=== PATIENT | female | born 1945 | race Caucasian/White ===

== ENCOUNTER 2017-04-27 17:57 | Emergency (ER) | payer SELFPAY ==
[2017-04-27 18:11] VITALS: PULSE 94; TEMP 98.3; BMI 32.1
--- NOTE | 2017-04-27 19:49 | PDOC ---
History of Present Illness - General History Source: Patient Exam Limitations: No Limitations - History of Present Illness Initial Comments: 04/27/17 20:38 The patient is a 71 year old female presenting with her grandson and son, with a significant past medical history of HTN, who presents to the emergency department with abdominal pain, nausea, vomit and diarrhea since yesterday. She describes her pain as ranging from mild to moderate, without radiation or modifying factors. She notes that her pain is intermittently in nature. She states that her abdomen feels hard and bloated. She reports that she has had a total of 1 vomiting and 3 diarrhea episodes that were both non bloody in nature. She states that she took 4 probiotic medications today with little to no relief of her symptoms. The patient denies chest pain, shortness of breath, headache and dizziness. Denies fever, chills and constipation. Denies dysuria, frequency, urgency and hematuria. Allergies: None Past surgical history: None reported Social history: No alcohol, tobacco or drug use reported <Juarez Huff - Last Filed: 04/27/17 20:38> <Zheng Obrien - Last Filed: 05/01/17 07:16> - General Chief Complaint: Pain, Acute Stated Complaint: STOMACH PAIN Time Seen by Provider: 04/27/17 19:48 Past History <Juarez Huff - Last Filed: 04/27/17 20:38> - Suicide/Smoking/Psychosocial Hx Smoking History: Former smoker Have you smoked in the past 12 months: No Information on smoking cessation initiated: No <Zheng Obrien - Last Filed: 05/01/17 07:16> - Past Medical History Allergies/Adverse Reactions: Allergies Allergy/AdvReac Type Severity Reaction Status Date / Time No Known Allergies Allergy Verified 04/27/17 18:08 Home Medications: Ambulatory Orders Enalapril Maleate [Vasotec] 20 mg PO BID 04/27/17 Levofloxacin [Levaquin -] 500 mg PO DAILY #7 tablet 04/28/17 Metronidazole [Flagyl -] 500 mg PO BID #14 tablet 04/28/17 Review of Systems - Review of Systems Able to Perform ROS?: Yes Comments:: 04/27/17 20:39 GENERAL/CONSTITUTIONAL: No fever or chills. No weakness. HEAD, EYES, EARS, NOSE AND THROAT: No change in vision. No ear pain or discharge. No sore throat.- CARDIOVASCULAR: No chest pain or shortness of breath RESPIRATORY: No cough, wheezing, or hemoptysis. GASTROINTESTINAL: (+) Abdominal pain, nausea, vomiting, diarrhea. No constipation. GENITOURINARY: No dysuria, frequency, or change in urination. MUSCULOSKELETAL: No joint or muscle swelling or pain. No neck or back pain. SKIN: No rash NEUROLOGIC: No headache, vertigo, loss of consciousness, or change in strength/ sensation. ENDOCRINE: No increased thirst. No abnormal weight change HEMATOLOGIC/LYMPHATIC: No anemia, easy bleeding, or history of blood clots. ALLERGIC/IMMUNOLOGIC: No hives or skin allergy. <Juarez Huff - Last Filed: 04/27/17 20:38> *Physical Exam - Vital Signs Last Vital Signs Temp Pulse Resp BP Pulse Ox 98.3 F 94 H 19 160/100 97 04/27/17 18:08 04/27/17 18:08 04/27/17 18:08 04/27/17 18:08 04/27/17 18:08 - Physical Exam Comments: 04/27/17 20:39 GENERAL: Awake, alert, and fully oriented, in no acute distress HEAD: No signs of trauma, normocephalic, atraumatic EYES: PERRLA, EOMI, sclera anicteric, conjunctiva clear ENT: Auricles normal inspection, hearing grossly normal, nares patent, oropharynx clear without exudates. Moist mucosa NECK: Normal ROM, supple, no lymphadenopathy, JVD, or masses LUNGS: No distress, speaks full sentences, clear to auscultation bilaterally HEART: Regular rate and rhythm, normal S1 and S2, no murmurs, rubs or gallops, peripheral pulses normal and equal bilaterally. ABDOMEN: Soft, nontender, normoactive bowel sounds. No guarding, no rebound. No masses EXTREMITIES : Normal inspection, Normal range of motion, no edema. No clubbing or cyanosis. NEUROLOGICAL: Cranial nerves II through XII grossly intact. Normal speech, normal gait, no focal sensorimotor deficits SKIN: Warm, Dry, normal turgor, no rashes or lesions noted. <Juarez Huff - Last Filed: 04/27/17 20:38> - Vital Signs Last Vital Signs Temp Pulse Resp BP Pulse Ox 98.3 F 94 H 19 160/100 97 04/27/17 18:08 04/27/17 18:08 04/27/17 18:08 04/27/17 18:08 04/27/17 18:08 <Zheng Obrien - Last Filed: 05/01/17 07:16> ED Treatment Course - Medications Given in the ED: ED Medications Discontinued Medications Generic Name Dose Route Start Last Admin Trade Name John PRN Reason Stop Dose Admin Sodium Chloride 1,000 mls @ 1,000 mls/hr 04/27/17 20:09 04/27/17 20:25 Normal Saline - IV 04/27/17 21:08 Not Given ASDIR STA Morphine Sulfate 4 mg 04/27/17 20:05 04/27/17 20:25 Morphine Injection - IVPUSH 04/27/17 20:06 Not Given ONCE ONE Ondansetron HCl 4 mg 04/27/17 20:05 04/27/17 20:25 Zofran Injection IVPUSH 04/27/17 20:06 Not Given ONCE ONE <Juarez Huff - Last Filed: 04/27/17 20:38> - LABORATORY CBC & Chemistry Diagram: 04/27/17 21:33 04/27/17 21:33 <Zheng Obrien - Last Filed: 05/01/17 07:16> *DC/Admit/Observation/Transfer - Attestations Scribe Attestion: 04/27/17 20:39 Documentation prepared by Juarez Huff, acting as medical device assembler for Zheng Obrien MD <Juarez Huff - Last Filed: 04/27/17 20:38> - Attestations Physician Attestion: 04/27/17 19:48 I, Dr. Zheng Obrien, attest that this document has been prepared under my direction and personally reviewed by me in its entirety. I further attest, that it accurately reflects all work, treatment, procedures and medical decision -making performed by me. <Zheng Obrien - Last Filed: 05/01/17 07:16> Diagnosis at time of Disposition: Enteritis - Discharge Dispostion Disposition: HOME - Prescriptions Prescriptions: Metronidazole [Flagyl -] 500 mg PO BID #14 tablet Levofloxacin [Levaquin -] 500 mg PO DAILY #7 tablet - Referrals Referrals: Bryant Butt MD [Staff Physician] - - Patient Instructions Printed Discharge Instructions: DI for Colitis Additional Instructions: TAke medication as directed. Follow up with your doctor or the doctor referred to you. Return if any problems Print Language: SERBIAN
[2017-04-27] MEDS ORDERED: ONDANSETRON 4 MG/2 ML VIAL IVPUSH ONE ×2 (20:05→20:54)
[2017-04-27] MEDS ORDERED: morphine CARPU-JECT 4 MG/1 ML DISP.SYRIN IVPUSH ONE ×2 (20:05→20:54)
[2017-04-27] MEDS ORDERED: SODIUM CHLORIDE 1,000 ML IV STA ×2 (20:09→20:54)
[2017-04-27] MEDS ORDERED: morphine CARPU-JECT 10 MG/1 ML DISP.SYRIN ONE (21:49)
[2017-04-27] MEDS ORDERED: ONDANSETRON 4 MG/2 ML VIAL ONE (21:50)
[2017-04-27 22:03] LABS: BASOPHIL 0.5 % (0-2.0); EOSINOPHIL 0.6 % (0-4.5); MCH 29.7 pg (25.7-33.7); MCHC 34.1 g/dl (32.0-36.0); MEAN CELL VOLUME 87.2 fl (80-96); MEAN PLT VOLUME 7.3 fl (7.5-11.1); NEUTROPHILS 78.3 % (42.8-82.8); PLATELET COUNT 280 K/MM3 (134-434); RDW 13.6 % (11.6-15.6); WHITE BLOOD COUNT 11.4 K/mm3 (4.0-10.0)
[2017-04-27 22:15] LABS: URINE APPEARANCE SLCLOUDY; URINE BILIRUBIN NEGATIVE (NEGATIVE); URINE BLOOD NEGATIVE (NEGATIVE); URINE COLOR YELLOW; URINE GLUCOSE (UA) NEGATIVE (NEGATIVE); URINE KETONE NEGATIVE (NEGATIVE); URINE NITRITE NEGATIVE (NEGATIVE); URINE PROTEIN NEGATIVE (NEGATIVE); URINE UROBILINOGEN NEGATIVE mg/dL (0.2-1.0)
[2017-04-27 22:19] LABS: INR 0.97 (0.82-1.09)
[2017-04-27 22:30] LABS: ALBUMIN 3.8 g/dl (3.4-5.0); ALK PHOS 101 U/L (45-117); ANION GAP 11 (8-16); BILIRUBIN,TOTAL 0.6 mg/dL (0.2-1.0); CALCIUM 9.1 mg/dL (8.5-10.1); CO2 30 mmol/L (21-32); CREATININE 1.2 mg/dL (0.55-1.02); GLUCOSE,RANDOM 132 mg/dL (74-106); SGOT/AST 14 U/L (15-37); SGPT/ALT 17 U/L (12-78); TOT PROT 7.2 g/dl (6.4-8.2)
[2017-04-28] MEDS ORDERED: METRONIDAZOLE 500 MG PREMIXED 100 ML IVPB ONE ×2 (00:05→00:22)
[2017-04-28] MEDS ORDERED: LEVOFLOXACIN 750 MG IVPB 150 ML IVPB ONE ×2 (00:05→00:22)
--- NOTE | 2017-04-28 02:33 | PDOC ---
*Physical Exam - Vital Signs Last Vital Signs Temp Pulse Resp BP Pulse Ox 98.3 F 94 H 19 160/100 97 04/27/17 18:08 04/27/17 18:08 04/27/17 18:08 04/27/17 18:08 04/27/17 18:08 ED Treatment Course - LABORATORY CBC & Chemistry Diagram: 04/27/17 21:33 04/27/17 21:33 - ADDITIONAL ORDERS Additional order review: Laboratory Results 04/27/17 04/27/17 04/27/17 21:33 21:33 21:33 PT with INR 11.00 INR 0.97 Sodium Potassium Chloride Carbon Dioxide Anion Gap BUN Creatinine Creat Clearance w eGFR Random Glucose Calcium Total Bilirubin AST ALT Alkaline Phosphatase Total Protein Albumin Lipase 104 Urine Color Yellow Urine Appearance Slcloudy Urine pH 5.0 Urine Protein Negative Urine Glucose (UA) Negative Urine Ketones Negative Urine Blood Negative Urine Nitrite Negative Urine Bilirubin Negative Urine Urobilinogen Negative 04/27/17 21:33 PT with INR INR Sodium 139 Potassium 4.1 Chloride 98 Carbon Dioxide 30 Anion Gap 11 BUN 23 H Creatinine 1.2 H Creat Clearance w eGFR 44.41 Random Glucose 132 H Calcium 9.1 Total Bilirubin 0.6 AST 14 L ALT 17 Alkaline Phosphatase 101 Total Protein 7.2 Albumin 3.8 Lipase Urine Color Urine Appearance Urine pH Urine Protein Urine Glucose (UA) Urine Ketones Urine Blood Urine Nitrite Urine Bilirubin Urine Urobilinogen 04/27/17 21:33 RBC 4.70 MCV 87.2 MCHC 34.1 RDW 13.6 MPV 7.3 L Neutrophils % 78.3 Lymphocytes % 14.0 Monocytes % 6.6 Eosinophils % 0.6 Basophils % 0.5 - Medications Given in the ED: ED Medications Discontinued Medications Generic Name Dose Route Start Last Admin Trade Name Freq PRN Reason Stop Dose Admin Sodium Chloride 1,000 mls @ 1,000 mls/hr 04/27/17 20:09 04/27/17 20:25 Normal Saline - IV 04/27/17 21:08 Not Given ASDIR STA Sodium Chloride 1,000 mls @ 1,000 mls/hr 04/27/17 20:54 04/27/17 22:06 Normal Saline - IV 04/27/17 21:53 1,000 mls/hr ASDIR STA Administration Metronidazole 100 mls @ 100 mls/hr 04/28/17 00:05 04/28/17 01:55 Flagyl 500mg Premixed Ivpb - IVPB 04/28/17 01:04 100 mls/hr ONCE ONE Administration Levofloxacin 150 mls @ 100 mls/hr 04/28/17 00:05 04/28/17 02:24 Levaquin 750 Mg Premixed Ivpb - IVPB 04/28/17 01:34 100 mls/hr ONCE ONE Administration Morphine Sulfate 4 mg 04/27/17 20:05 04/27/17 20:25 Morphine Injection - IVPUSH 04/27/17 20:06 Not Given ONCE ONE Morphine Sulfate 4 mg 04/27/17 20:54 04/27/17 22:02 Morphine Injection - IVPUSH 04/27/17 20:55 4 mg ONCE ONE Administration Ondansetron HCl 4 mg 04/27/17 20:05 04/27/17 20:25 Zofran Injection IVPUSH 04/27/17 20:06 Not Given ONCE ONE Ondansetron HCl 4 mg 04/27/17 20:54 04/27/17 22:02 Zofran Injection IVPUSH 04/27/17 20:55 4 mg ONCE ONE Administration *DC/Admit/Observation/Transfer Diagnosis at time of Disposition: Enteritis - Discharge Dispostion Disposition: HOME Condition at time of disposition: Stable Admit: No - Prescriptions Prescriptions: Metronidazole [Flagyl -] 500 mg PO BID #14 tablet Levofloxacin [Levaquin -] 500 mg PO DAILY #7 tablet - Referrals Referrals: Bryant Butt MD [Staff Physician] - - Patient Instructions Printed Discharge Instructions: DI for Colitis Additional Instructions: TAke medication as directed. Follow up with your doctor or the doctor referred to you. Return if any problems
[2017-04-28 03:44] VITALS: BP 173/85
[2017-04-28 10:16] LABS: URINE LEUK ESTERASE Negative (NEGATIVE)
== END 2017-04-28 03:44 | disposition home or self-care (01) ==
LOC: JER 17:57
PROC: 3E0337Z Introduction of Electrolytic and Water Balance Substance into Peripheral Vein, Percutaneous Approach (ICD-10-PCS; principal; 2017-04-27)
PROC: 3E03329 Introduction of Other Anti-infective into Peripheral Vein, Percutaneous Approach (ICD-10-PCS; 2017-04-27)
PROC: 3E033GC Introduction of Other Therapeutic Substance into Peripheral Vein, Percutaneous Approach (ICD-10-PCS; 2017-04-27)
PROC: 3E033NZ Introduction of Analgesics, Hypnotics, Sedatives into Peripheral Vein, Percutaneous Approach (ICD-10-PCS; 2017-04-27)
PROC: 3E033GC Introduction of Other Therapeutic Substance into Peripheral Vein, Percutaneous Approach (ICD-10-PCS; 2017-04-27)
PROC: 3E033GC Introduction of Other Therapeutic Substance into Peripheral Vein, Percutaneous Approach (ICD-10-PCS; 2017-04-27)
DX: K52.9 Noninfective gastroenteritis and colitis, unspecified (principal); I10 Essential (primary) hypertension
CPT/HCPCS: 36415; 74177-TC; 80053; 81003; 83690; 85025; 85610; 87040; 87086; 99283-25